=== PATIENT | female | born 1990 ===

== ENCOUNTER 2020-09-16 04:25 | Day surgery (SDC) | payer OTHER ==
[2020-09-15 11:09] VITALS: BMI 35.7
[2020-09-16] MEDS ORDERED: LIDOCAINE HCL 1%, 10 MG/ML (20ML VIAL) ONE ×2 (08:36→09:01)
[2020-09-16] MEDS ORDERED: LIDOCAINE HCL 1%, 10 MG/ML (20ML VIAL) NR ONE ×3 (09:21→10:37)
[2020-09-16] MEDS ORDERED: MIDAZOLAM HCL 2 MG/2 ML SINGLE DOSE VIAL ONE (10:18)
[2020-09-16] MEDS ORDERED: PROPOFOL 20 ML ONE (10:18)
[2020-09-16] MEDS ORDERED: ceFAZolin 2 GRAM PREMIX BAG IVPB ONE (10:24)
[2020-09-16 12:58] VITALS: BP 110/64; PULSE 68; TEMP 98.7
== END 2020-09-16 13:00 | disposition home or self-care (01) ==
LOC: JASU-SURG 04:25
PROVIDERS: ATTEND Surgery
PROC: 07B60ZX Excision of Left Axillary Lymphatic, Open Approach, Diagnostic (ICD-10-PCS; principal; 2020-09-16 10:00)
DX: D36.0 Benign neoplasm of lymph nodes (principal)
CPT/HCPCS: 81025; 88305-TC; 88342-TC; 94760